=== PATIENT | female | born 1995 | race American Indian/Alaskan Native ===

== ENCOUNTER 2021-09-04 14:01 | Emergency (ER) | payer SELFPAY ==
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
[2021-09-04 14:39] VITALS: BP 111/66
[2021-09-04] MEDS ORDERED: ACETAMINOPHEN 325 MG TAB PO ONE (15:00)
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
== END 2021-09-04 16:48 | disposition home or self-care (01) ==
LOC: ED 14:01
DX: S39.012A Strain of muscle, fascia and tendon of lower back, initial encounter (principal); S83.91XA Sprain of unspecified site of right knee, initial encounter; V49.49XA Driver injured in collision with other motor vehicles in traffic accident, initial encounter; Y93.89 Activity, other specified; Y92.89 Other specified places as the place of occurrence of the external cause; Y99.8 Other external cause status
CPT/HCPCS: 72100; 99283

== ENCOUNTER 2022-07-19 00:54 | Emergency (ER) | payer SELFPAY | END 2022-07-19 01:07 | disposition left against medical advice (07) | LOC: ED 00:54 | DX: S61.412A Laceration without foreign body of left hand, initial encounter (principal); Z53.21 Procedure and treatment not carried out due to patient leaving prior to being seen by health care provider; X58.XXXA Exposure to other specified factors, initial encounter; Y93.89 Activity, other specified; Y92.89 Other specified places as the place of occurrence of the external cause; Y99.8 Other external cause status ==